=== PATIENT | female | born 1950 | race Caucasian/White ===

== ENCOUNTER 2017-02-07 22:47 | Emergency (ER) | payer OTHER ==
[~2017-02-07] VITALS: Ht 157.5 cm; Wt 59.0 kg
[2017-02-07 22:52] VITALS: BP 157/100
--- NOTE | 2017-02-07 22:52 | NUR ---
PT. BIB [facility] TO [facility]
--- NOTE | 2017-02-07 23:02 | NUR ---
Patient being evaluated by Dr. Tejada
[2017-02-07 23:09] VITALS: BP 157/100
--- NOTE | 2017-02-07 23:09 | NUR ---
PATIENT BIB [facility]. PATIENT MEDICALLY CLEARED AND RELEASED IN CUSTODY IN STABLE CONDITION. ORIGINAL PRE-BOOK FORM GIVEN TO OFFICER. DISCHARGE INSTRUCTIONS GIVEN TO OFFICER.
== END 2017-02-07 23:09 ==
LOC: MED 22:47
DX: Z02.89 Encounter for other administrative examinations (principal)
CPT/HCPCS: 99283